=== PATIENT | female | born 1990 | race Asian ===

== ENCOUNTER 2018-07-28 17:49 | Outpatient (CLI) | payer OTHER ==
[~2018-07-28] VITALS: Ht 162.6 cm; Wt 82.2 kg
[2018-07-28] MEDS ORDERED: CALC300T5 PO (18:30)
[2018-07-28] MEDS ORDERED: ACET325C5 PO (18:30)
[2018-07-28] MEDS ORDERED: PREN1TAB60 PO (18:30)
[2018-07-28 18:33] VITALS: BP 133/76
[2018-07-28 19:02] LABS: MICROSCOPIC INDICATED
== END 2018-07-28 19:05 | disposition home or self-care (01) ==
LOC: LDOP 17:49
PROVIDERS: ATTEND Obstetrics & Gynecology
DX: O36.8130 Decreased fetal movements, third trimester, not applicable or unspecified (principal); Z3A.32 32 weeks gestation of pregnancy
CPT/HCPCS: 59025; 81001; 87086; 99201; G0463

== ENCOUNTER 2018-08-21 18:28 | Outpatient (CLI) | payer OTHER ==
[~2018-08-21] VITALS: Ht 162.6 cm; Wt 85.0 kg
[~2018-08-21 18:28] MED LIST: ACET325C5 PO; CALC300T5 PO; PREN1TAB60 PO
[2018-08-21 18:32] VITALS: BP 136/85
[2018-08-21 19:00] LABS: MICROSCOPIC INDICATED
[2018-08-21 19:11] LABS: BASOPHILS # (AUTO) 0.03 x10^3/uL (0-0.1); BASOPHILS % (AUTO) 0 % (0-1); EOSINOPHILS # (AUTO) 0.12 x10^3/uL (0-0.4); EOSINOPHILS % (AUTO) 1 % (1-7); LYMPHOCYTES # (AUTO) 1.77 x10^3/uL (1-3.4); LYMPHOCYTES % (AUTO) 18 % (22-44); MD NO; MEAN CORPUSCULAR HEMOGLOBIN 31.4 pg (27.0-34.8); MEAN CORPUSCULAR HGB CONC 33.9 g/dL (32.4-35.8); MEAN CORPUSCULAR VOLUME 92.5 fL (80-100); MONOCYTES # (AUTO) 0.56 x10^3/uL (0.2-0.8); MONOCYTES % (AUTO) 6 % (2-9); NEUTROPHILS # (AUTO) 7.64 x10^3/uL (1.8-6.8); NEUTROPHILS % (AUTO) 76 % (42-75); PLATELET COUNT 276 x10^3/uL (130-400); RED BLOOD COUNT 4.09 x10^6/uL (3.82-5.3); RED CELL DISTRIBUTION WIDTH 13.3 % (9.6-15.2)
[2018-08-21 19:12] LABS: CREATININE,URINE RANDOM 62.7 mg/dL
[2018-08-21 19:20] LABS: ALANINE AMINOTRANSFERASE 26 U/L (12-78); ALBUMIN 2.7 g/dL (3.4-5.0); ANION GAP 10 mmol/L (5-15); BILIRUBIN, DIRECT 0.1 mg/dL (0.1-0.2); CALCIUM 8.6 mg/dL (8.5-10.1); CHLORIDE 111 mmol/L (98-107); CREATININE 0.46 mg/dL (0.55-1.02)
[2018-08-21 19:23] LABS: ALKALINE PHOSPHATASE 133 U/L (45-117); BILIRUBIN,TOTAL 0.3 mg/dL (0.2-1.0); TOTAL PROTEIN 6.3 g/dL (6.4-8.2)
== END 2018-08-21 20:48 | disposition home or self-care (01) ==
LOC: LDOP 18:28
PROVIDERS: ATTEND Obstetrics & Gynecology
DX: O36.8130 Decreased fetal movements, third trimester, not applicable or unspecified (principal); Z3A.36 36 weeks gestation of pregnancy
CPT/HCPCS: 36415; 59025; 80053; 81001; 82248; 82570; 84156; 84550; 85025; 99211; G0463

== ENCOUNTER 2018-08-22 21:50 | Observation (INO) | payer OTHER ==
[~2018-08-22] VITALS: Ht 165.1 cm; Wt 85.0 kg
[2018-08-22 22:22] VITALS: BP 126/73
[2018-08-22 22:54] LABS: BASOPHILS # (AUTO) 0.03 x10^3/uL (0-0.1); BASOPHILS % (AUTO) 0 % (0-1); EOSINOPHILS # (AUTO) 0.13 x10^3/uL (0-0.4); EOSINOPHILS % (AUTO) 1 % (1-7); LYMPHOCYTES # (AUTO) 1.73 x10^3/uL (1-3.4); LYMPHOCYTES % (AUTO) 17 % (22-44); MD NO; MEAN CORPUSCULAR HGB CONC 33.9 g/dL (32.4-35.8); MEAN CORPUSCULAR VOLUME 91.4 fL (80-100); MONOCYTES # (AUTO) 0.55 x10^3/uL (0.2-0.8); MONOCYTES % (AUTO) 5 % (2-9); NEUTROPHILS % (AUTO) 77 % (42-75); PLATELET COUNT 263 x10^3/uL (130-400); RED BLOOD COUNT 4.13 x10^6/uL (3.82-5.3); RED CELL DISTRIBUTION WIDTH 13.3 % (9.6-15.2)
[2018-08-22 23:05] LABS: ALBUMIN 2.4 g/dL (3.4-5.0); ANION GAP 11 mmol/L (5-15); CALCIUM 8.8 mg/dL (8.5-10.1); CHLORIDE 108 mmol/L (98-107)
[2018-08-22 23:09] LABS: ALANINE AMINOTRANSFERASE 23 U/L (12-78); ALKALINE PHOSPHATASE 122 U/L (45-117); BILIRUBIN,TOTAL 0.3 mg/dL (0.2-1.0); CREATININE 0.51 mg/dL (0.55-1.02); TOTAL PROTEIN 6.3 g/dL (6.4-8.2)
== END 2018-08-22 23:55 | disposition home or self-care (01) ==
LOC: LDOP 21:50 → LDIP 22:20
PROVIDERS: ADMIT Obstetrics & Gynecology; ATTEND Obstetrics & Gynecology
DX: O26.893 Other specified pregnancy related conditions, third trimester (principal); R42 Dizziness and giddiness; Z3A.36 36 weeks gestation of pregnancy
CPT/HCPCS: 36415; 59025; 80053; 85025; G0378

== ENCOUNTER 2018-08-25 04:25 | Inpatient (IN) | payer OTHER ==
[~2018-08-25] VITALS: Ht 163.8 cm; Wt 85.0 kg
[2018-08-25 05:33] LABS: MICROSCOPIC INDICATED
[2018-08-25] MEDS ORDERED: D5%-LACTATED RINGERS 1,000 ML IV SCH (06:16)
[2018-08-25] MEDS ORDERED: OXYTOCIN 30U/ 0.9% NaCL 500ML 500 ML IV ONE (06:16)
[2018-08-25] MEDS ORDERED: FENTANYL/BUPIV./NS/PF 250 ML EPIDCONT SCH ×2 (06:23→09:50)
[2018-08-25] MEDS ORDERED: TERBUTALINE 1 MG/ML, 1ML IVPush PRN (06:30)
[2018-08-25] MEDS ORDERED: FENTANYL PF 100 MCG/2ML IV PRN (06:30)
[2018-08-25] MEDS ORDERED: METOCLOPRAMIDE 5 MG/ML, 2ML IVPush PRN (06:30)
[2018-08-25] MEDS ORDERED: CALCIUM CARBONATE 500 MG TAB.CHEW PO PRN ×2 (06:30→16:00)
[2018-08-25] MEDS ORDERED: SODIUM CITRATE/CITRIC ACID 30 ML UDC PO PRN (06:30)
[2018-08-25] MEDS ORDERED: ONDANSETRON 2MG/ML, 2ML IVPush PRN ×2 (06:30→10:00)
[2018-08-25] MEDS ORDERED: FENTANYL PF 100 MCG/2ML IVPush PRN (06:30)
[2018-08-25] MEDS ORDERED: NEWBORN KIT ONE ×2 (06:40→15:29)
[2018-08-25] MEDS ORDERED: FENTANYL PF 100 MCG/2ML ONE ×2 (06:42→13:37)
[2018-08-25] MEDS: LACTATED RINGERS 1,000 ML IV SCH ×2 (06:45→07:05)
[2018-08-25 06:50] LABS: ALBUMIN 2.5 g/dL (3.4-5.0); BILIRUBIN, DIRECT 0.1 mg/dL (0.1-0.2)
[2018-08-25 06:52] LABS: BILIRUBIN,INDIRECT 0.3 mg/dL (0.0-2.0); BILIRUBIN,TOTAL 0.4 mg/dL (0.2-1.0); TOTAL PROTEIN 6.5 g/dL (6.4-8.2)
[2018-08-25 06:53] LABS: BASOPHILS # (AUTO) 0.01 x10^3/uL (0-0.1); BASOPHILS % (AUTO) 0 % (0-1); EOSINOPHILS # (AUTO) 0.13 x10^3/uL (0-0.4); EOSINOPHILS % (AUTO) 1 % (1-7); LYMPHOCYTES % (AUTO) 13 % (22-44); MD NO; MEAN CORPUSCULAR HEMOGLOBIN 30.7 pg (27.0-34.8); MEAN CORPUSCULAR HGB CONC 33.8 g/dL (32.4-35.8); MEAN CORPUSCULAR VOLUME 90.9 fL (80-100); MEAN PLATELET VOLUME 8.3 fL (7.4-10.4); MONOCYTES # (AUTO) 0.62 x10^3/uL (0.2-0.8); MONOCYTES % (AUTO) 4 % (2-9); NEUTROPHILS # (AUTO) 12.42 x10^3/uL (1.8-6.8); NEUTROPHILS % (AUTO) 82 % (42-75); PLATELET COUNT 268 x10^3/uL (130-400); RED BLOOD COUNT 4.42 x10^6/uL (3.82-5.3); RED CELL DISTRIBUTION WIDTH 13.1 % (9.6-15.2)
[2018-08-25] MEDS ORDERED: BUPIVACAINE 0.25% ONE (07:42)
[2018-08-25] MEDS ORDERED: LACTATED RINGERS 1,000 ML IV SCH (09:50)
[2018-08-25] MEDS ORDERED: NALOXONE 0.4 MG/ML, 1ML IVPush PRN (10:00)
[2018-08-25] MEDS ORDERED: LACTATED RINGERS 1,000 ML IVBOLUS PRN (10:00)
[2018-08-25] MEDS ORDERED: DIPHENHYDRAMINE 50 MG/ML, 1ML IVPush PRN (10:00)
[2018-08-25] MEDS ORDERED: EPHEDRINE 50 MG/ML, 1ML IVPush PRN (10:00)
[2018-08-25] MEDS ORDERED: OXYTOCIN 30U/ 0.9% NaCL 500ML 500 ML ONE ×2 (11:04→16:25)
[2018-08-25] MEDS ORDERED: OXYTOCIN 30U/ 0.9% NaCL 500ML 500 ML IV PRN (11:17)
[2018-08-25] MEDS ORDERED: ACETAMINOPHEN 325 MG TABLET PO PRN ×3 (11:30→16:00)
[2018-08-25] MEDS ORDERED: ACETAMINOPHEN 325 MG TABLET ONE (11:43)
[2018-08-25] MEDS: ACETAMINOPHEN 325 MG TABLET PO PRN (11:45)
[2018-08-25] MEDS: OXYTOCIN 30U/ 0.9% NaCL 500ML 500 ML IV SCH (15:49)
[2018-08-25] MEDS ORDERED: RHOGAM FROM BLOOD BANK 1 NOTE EA IM/IV ONE (16:00)
[2018-08-25] MEDS ORDERED: MAGNESIUM HYDROXIDE 8%, 30ML UDC PO PRN (16:00)
[2018-08-25] MEDS ORDERED: OXYcodone/APAP 5/325MG TABLET PO PRN ×2 (16:00)
[2018-08-25] MEDS ORDERED: IBUPROFEN 600 MG TABLET PO PRN (16:00)
[2018-08-25] MEDS ORDERED: DIPH,PERTUSS(ACELL),TET VAC/PF NC IM-VACC PRN (16:00)
[2018-08-25] MEDS ORDERED: MEASLES,MUMPS&RUBELLA VACC/PF 0.5 ML SQ PRN (16:00)
[2018-08-25] MEDS ORDERED: ONDANSETRON 2MG/ML, 2ML IV PRN (16:00)
[2018-08-25] MEDS ORDERED: MISOPROSTOL 200 MCG TABLET PR PRN (16:00)
[2018-08-25 19:58] VITALS: BP 149/96
[2018-08-25 23:30] VITALS: BP 142/92
[2018-08-26] MEDS: OXYTOCIN 30U/ 0.9% NaCL 500ML 500 ML IV SCH (01:49)
[2018-08-26] MEDS: DOCUSATE 100 MG CAPSULE PO PRN ×3 (02:06→22:46)
[2018-08-26] MEDS: ACETAMINOPHEN 325 MG TABLET PO PRN ×3 (02:06→22:45)
[2018-08-26 03:05] VITALS: BP 134/88
[2018-08-26 05:43] LABS: BASOPHILS # (AUTO) 0.05 x10^3/uL (0-0.1); BASOPHILS % (AUTO) 0 % (0-1); EOSINOPHILS # (AUTO) 0.04 x10^3/uL (0-0.4); EOSINOPHILS % (AUTO) 0 % (1-7); LYMPHOCYTES # (AUTO) 1.83 x10^3/uL (1-3.4); LYMPHOCYTES % (AUTO) 12 % (22-44); MD NO; MEAN CORPUSCULAR HEMOGLOBIN 31.7 pg (27.0-34.8); MEAN CORPUSCULAR HGB CONC 34.5 g/dL (32.4-35.8); MEAN PLATELET VOLUME 8.2 fL (7.4-10.4); MONOCYTES # (AUTO) 0.56 x10^3/uL (0.2-0.8); MONOCYTES % (AUTO) 4 % (2-9); NEUTROPHILS # (AUTO) 13.31 x10^3/uL (1.8-6.8); NEUTROPHILS % (AUTO) 84 % (42-75); PLATELET COUNT 211 x10^3/uL (130-400); RED BLOOD COUNT 3.45 x10^6/uL (3.82-5.3); RED CELL DISTRIBUTION WIDTH 13.6 % (9.6-15.2)
[2018-08-26 07:30] VITALS: BP 138/92
[2018-08-26] MEDS: PRENATAL VIT/IRON/FA 1 EACH TABLET PO SCH (09:00)
[2018-08-26 12:05] VITALS: BP 129/85
[2018-08-26 16:00] VITALS: BP 150/95
[2018-08-26 20:15] VITALS: BP 141/93
[2018-08-27 01:30] VITALS: BP 127/78
[2018-08-27 04:00] VITALS: BP 137/88
[2018-08-27 07:55] VITALS: BP 135/86
[2018-08-27] MEDS: PRENATAL VIT/IRON/FA 1 EACH TABLET PO SCH (08:15)
[2018-08-27] MEDS: DOCUSATE 100 MG CAPSULE PO PRN (08:15)
== END 2018-08-27 17:00 | disposition home or self-care (01) | DRG 807 ==
LOC: LDOP 04:25 → OBSVTOIN 05:48 → LDIP 05:48 → 2NW 18:46
PROVIDERS: ADMIT Obstetrics & Gynecology; ATTEND Obstetrics & Gynecology
PROC: 10E0XZZ Delivery of Products of Conception, External Approach (ICD-10-PCS; principal; 2018-08-27)
PROC: 0KQM0ZZ Repair Perineum Muscle, Open Approach (ICD-10-PCS; 2018-08-27)
PROC: 3E033VJ Introduction of Other Hormone into Peripheral Vein, Percutaneous Approach (ICD-10-PCS; 2018-08-27)
PROC: 3E0R3BZ Introduction of Anesthetic Agent into Spinal Canal, Percutaneous Approach (ICD-10-PCS; 2018-08-27)
PROC: 00HU33Z Insertion of Infusion Device into Spinal Canal, Percutaneous Approach (ICD-10-PCS; 2018-08-27)
DX: O60.14X0 Preterm labor third trimester with preterm delivery third trimester, not applicable or unspecified (principal); Z37.0 Single live birth; Z3A.36 36 weeks gestation of pregnancy; O70.1 Second degree perineal laceration during delivery
CPT/HCPCS: 36415; 80076; 81001; 82962; 84112; 84550; 85025; 86850; 86900; 89060; G0378; J3010; J3490; J2590; J7120; Q0114

== ENCOUNTER 2018-08-29 16:02 | Emergency (ER) | payer OTHER ==
[~2018-08-29] VITALS: Ht 165.1 cm; Wt 80.6 kg
[2018-08-29 17:05] LABS: BASOPHILS # (AUTO) 0.02 x10^3/uL (0-0.1); BASOPHILS % (AUTO) 0 % (0-1); EOSINOPHILS # (AUTO) 0.22 x10^3/uL (0-0.4); EOSINOPHILS % (AUTO) 1 % (1-7); LYMPHOCYTES # (AUTO) 1.36 x10^3/uL (1-3.4); LYMPHOCYTES % (AUTO) 8 % (22-44); MD NO; MEAN CORPUSCULAR HEMOGLOBIN 31.9 pg (27.0-34.8); MEAN CORPUSCULAR HGB CONC 34.4 g/dL (32.4-35.8); MEAN CORPUSCULAR VOLUME 92.8 fL (80-100); MONOCYTES # (AUTO) 0.45 x10^3/uL (0.2-0.8); MONOCYTES % (AUTO) 3 % (2-9); NEUTROPHILS # (AUTO) 14.04 x10^3/uL (1.8-6.8); NEUTROPHILS % (AUTO) 87 % (42-75); PLATELET COUNT 366 x10^3/uL (130-400); RED BLOOD COUNT 3.56 x10^6/uL (3.82-5.3); RED CELL DISTRIBUTION WIDTH 13.6 % (9.6-15.2)
[2018-08-29 17:14] LABS: ALANINE AMINOTRANSFERASE 71 U/L (12-78); ALBUMIN 2.7 g/dL (3.4-5.0); ANION GAP 8 mmol/L (5-15); CALCIUM 7.9 mg/dL (8.5-10.1); CHLORIDE 111 mmol/L (98-107); CREATININE 0.91 mg/dL (0.55-1.02)
[2018-08-29 17:16] LABS: ALKALINE PHOSPHATASE 157 U/L (45-117); BILIRUBIN,TOTAL 0.3 mg/dL (0.2-1.0); TOTAL PROTEIN 6.5 g/dL (6.4-8.2)
[2018-08-29] MEDS ORDERED: hydrALAzine 20 MG/ML, 1ML ONE (17:25)
[2018-08-29] MEDS ORDERED: hydrALAzine 20 MG/ML, 1ML IV ONE (17:30)
[2018-08-29 18:04] LABS: TROPONIN I < 0.015 ng/mL (0.000-0.045)
[2018-08-29 18:32] LABS: MICROSCOPIC AUTO
[2018-08-29 18:38] LABS: CULTURE INDICATED? YES
[2018-08-29 19:04] VITALS: BP 146/92
[2018-08-29] MEDS ORDERED: HYDROcodone/APAP 5/325 TABLET ONE (19:36)
[2018-08-29] MEDS ORDERED: HYDROcodone/APAP 5/325 TABLET PO ONE (20:00)
== END 2018-08-29 20:00 | disposition home or self-care (01) ==
LOC: ED 18:39
DX: O23.13 Infections of bladder in pregnancy, third trimester (principal); I10 Essential (primary) hypertension; R60.0 Localized edema; O90.9 Complication of the puerperium, unspecified; Z3A.36 36 weeks gestation of pregnancy
CPT/HCPCS: 36415; 70450; 71046; 80053; 81001; 83880; 84484; 85025; 87086; 93005; 93970; 99285

== ENCOUNTER 2020-02-28 05:46 | Emergency (ER) | payer OTHER ==
[~2020-02-28] VITALS: Ht 165.1 cm; Wt 80.0 kg
[~2020-02-28 05:46] MED LIST changes: -ACET325C5 PO; +ACET325C6 PO
[2020-02-28] MEDS ORDERED: MORPHINE SULFATE 4 MG/ML, 1ML ONE ×2 (06:09→06:34)
[2020-02-28] MEDS ORDERED: ONDANSETRON 2MG/ML, 2ML ONE (06:09)
[2020-02-28] MEDS: MORPHINE SULFATE 4 MG/ML, 1ML IVPush PRN ×2 (06:22→06:40)
[2020-02-28] MEDS ORDERED: SODIUM CHLORIDE FLUSH 10ML SYR IVF ONE (06:30)
[2020-02-28] MEDS ORDERED: ONDANSETRON 2MG/ML, 2ML IVPush ONE (06:30)
[2020-02-28 06:38] LABS: BASOPHILS # (AUTO) 0.02 x10^3/uL (0-0.1); BASOPHILS % (AUTO) 0 % (0-1); EOSINOPHILS # (AUTO) 0.09 x10^3/uL (0-0.4); EOSINOPHILS % (AUTO) 2 % (1-7); LYMPHOCYTES # (AUTO) 2.32 x10^3/uL (1-3.4); LYMPHOCYTES % (AUTO) 45 % (22-44); MD NO; MEAN CORPUSCULAR HEMOGLOBIN 31.3 pg (27.0-34.8); MEAN CORPUSCULAR HGB CONC 34.4 g/dL (32.4-35.8); MEAN CORPUSCULAR VOLUME 91.1 fL (80-100); MEAN PLATELET VOLUME 7.8 fL (7.4-10.4); MONOCYTES # (AUTO) 0.32 x10^3/uL (0.2-0.8); MONOCYTES % (AUTO) 6 % (2-9); NEUTROPHILS # (AUTO) 2.45 x10^3/uL (1.8-6.8); NEUTROPHILS % (AUTO) 47 % (42-75); PLATELET COUNT 251 x10^3/uL (130-400); RED CELL DISTRIBUTION WIDTH 13.5 % (9.6-15.2)
--- NOTE | 2020-02-28 06:40 | NUR ---
Patient presents to ER c/o RLQ abd pain starting approx 1 hr ago. Pain radiates to right side of back. Patient is nauseous with dry heaves; no vomiting. Patient feels like she is going to pass out. Patient is yelling out in pain. Respirations even and unlabored.
--- NOTE | 2020-02-28 06:42 | NUR ---
Patient c/o worsening pain even after first dose of morphine. Medicated patient per dec.
[2020-02-28 06:43] LABS: CULTURE INDICATED? YES; MICROSCOPIC INDICATED
[2020-02-28 06:48] LABS: ALANINE AMINOTRANSFERASE 23 U/L (12-78); ALBUMIN 3.9 g/dL (3.4-5.0); ANION GAP 10 mmol/L (5-15); CALCIUM 8.8 mg/dL (8.5-10.1); CHLORIDE 109 mmol/L (98-107)
--- NOTE | 2020-02-28 06:52 | NUR ---
Report given to SHAHNAZ Grimm.
[2020-02-28 06:53] LABS: ALKALINE PHOSPHATASE 65 U/L (45-117); BILIRUBIN,TOTAL 0.4 mg/dL (0.2-1.0); CREATININE 0.91 mg/dL (0.55-1.02); TOTAL PROTEIN 7.7 g/dL (6.4-8.2)
--- NOTE | 2020-02-28 06:53 | NUR ---
REPORT RECEIVED FROM RAJENDRA CHRISTIE.
[2020-02-28] MEDS ORDERED: HYDROmorphone 1 MG/ML, 1ML INJ IV ONE (07:00)
[2020-02-28] MEDS ORDERED: HYDROmorphone 1 MG/ML, 1ML INJ ONE (07:00)
--- NOTE | 2020-02-28 07:05 | NUR ---
patient is yelling out in pain. pt states"help me. give me something." pt's aox4. resps even and unlabored. pa notified.
[2020-02-28 07:06] VITALS: BP 122/83
--- NOTE | 2020-02-28 07:10 | NUR ---
PT MEDICATED PER EMAR. PT TOLERATED WELL.
--- NOTE | 2020-02-28 07:20 | NUR ---
pt in ct at this time.
--- NOTE | 2020-02-28 07:39 | NUR ---
pt's pain level is 5/10 at this time. pt states"i feel much better."
--- NOTE | 2020-02-28 08:12 | NUR ---
Patient given discharge instructions and they have confirmed that they understand the instructions.
== END 2020-02-28 08:13 | disposition home or self-care (01) ==
LOC: ED 06:45
DX: N13.2 Hydronephrosis with renal and ureteral calculous obstruction (principal); R10.31 Right lower quadrant pain; M45.4 Ankylosing spondylitis of thoracic region; R11.0 Nausea; I10 Essential (primary) hypertension
CPT/HCPCS: 36415; 74176; 80053; 81001; 83690; 84703; 85025; 87086; 96374; 96375; 96376; 99284; J1170; J2270; J2405